=== PATIENT | female | born 2000 | race Caucasian/White ===

== ENCOUNTER 2020-04-19 17:14 | Inpatient (IN) | payer OTHER, MEDICARE, MEDICAID ==
[~2020-04-19] VITALS: Ht 162.6 cm; Wt 53.9 kg
[2020-04-19] MEDS ORDERED: SODIUM CHLORIDE FLUSH 10ML SYR IVF ONE (17:30)
[2020-04-19] MEDS ORDERED: SODIUM CHLORIDE 0.9% 1,000 ML IV ONE (17:30)
--- NOTE | 2020-04-19 17:44 | NUR ---
DYLAN RN: PT REPORTS SHE TOOK UNKNOWN AMOUNT OF DEPAKOTE AND RISPERDAL TO HURT HERSELF. PT REPORTS SHE IS SEEING AND HEARTHING THINGS. PT SEEN BY DR GARCIA. PT BROUGHT BACK TO T3. INTEGRATION LEAD ON. SINUS TACH NOTED. VS STABLE. FAMILY AT BEDSIDE. WILL CONTINUE TO MONITOR.
[2020-04-19 17:49] LABS: BASOPHILS % (AUTO) 1 % (0-1); EOSINOPHILS % (AUTO) 0 % (1-7); LYMPHOCYTES % (AUTO) 30 % (22-44); MEAN CORPUSCULAR HEMOGLOBIN 25.1 pg (27.0-34.8); MEAN CORPUSCULAR HGB CONC 31.7 g/dL (32.4-35.8); MEAN PLATELET VOLUME 7.4 fL (7.4-10.4); MONOCYTES % (AUTO) 10 % (2-9); NEUTROPHILS % (AUTO) 59 % (42-75); PLATELET COUNT 438 x10^3/uL (130-400); RED BLOOD COUNT 4.76 x10^6/uL (3.82-5.3); RED CELL DISTRIBUTION WIDTH 20.9 % (9.6-15.2)
[2020-04-19 17:50] LABS: MD NO
[2020-04-19] MEDS ORDERED: RISP2TAB35 PO (17:55)
[2020-04-19] MEDS ORDERED: DIVA500T4 PO (17:56)
[2020-04-19 18:00] LABS: ALBUMIN 3.6 g/dL (3.4-5.0); ANION GAP 7 mmol/L (5-15); CALCIUM 8.5 mg/dL (8.5-10.1); CHLORIDE 106 mmol/L (98-107)
--- NOTE | 2020-04-19 18:15 | NUR ---
PT RESTING IN ROOM. VS STABLE. PUBLICATIONS DISTRIBUTION CLERK ON. SINUS TACH NOTED. CALL LIGHT IN PLACE. WILL CONTINUE TO MONITOR.
[2020-04-19 18:17] LABS: % IRON SATURATION 4 % (20-55); ALANINE AMINOTRANSFERASE 12 U/L (12-78); ALKALINE PHOSPHATASE 76 U/L (45-117); BILIRUBIN,TOTAL 0.2 mg/dL (0.2-1.0); CREATININE 0.75 mg/dL (0.55-1.02); IRON LEVEL 18 mcg/dL (50-170); TOTAL IRON BINDING CAPACITY 437 mcg/dL (250-450); TOTAL PROTEIN 7.9 g/dL (6.4-8.2)
[2020-04-19 18:18] LABS: SALICYLATE LEVEL < 1.7 mg/dL (2.8-20.0)
--- NOTE | 2020-04-19 18:20 | NUR ---
DR GARCIA HAS UPDATED PATIENT
--- NOTE | 2020-04-19 18:22 | NUR ---
bedside report given to BAUTISTA Fletcher
--- NOTE | 2020-04-19 18:22 | NUR ---
Report from faby rn With assessment patient A+Ox4 patient noted to be responding to external stimuli. A fact she does not deny Tachycardic in the 130's and hypotensive 80/50- Provider to bedside to convey poc
[2020-04-19] MEDS ORDERED: SODIUM CHLORIDE 0.9%, 500ML IVBOLUS ONE (18:30)
--- NOTE | 2020-04-19 18:35 | NUR ---
Lab called to report valproic acid level of 264.8
[2020-04-19] MEDS ORDERED: CHARCOAL/SORBITOL 50 GM/240 ML ONE (18:46)
[2020-04-19] MEDS ORDERED: ONDANSETRON 2MG/ML, 2ML IVPush ONE (19:00)
[2020-04-19] MEDS ORDERED: CHARCOAL/AQUEOUS 25 GM/120 ML PO ONE (19:00)
--- NOTE | 2020-04-19 19:03 | NUR ---
1l ns bolus complete patient drank entire 240ml of the charcoal solution
--- NOTE | 2020-04-19 19:04 | NUR ---
report to regina henry
--- NOTE | 2020-04-19 19:38 | NUR ---
Pt resting on gurney, heart rate improving. Closely monitored.
--- NOTE | 2020-04-19 20:24 | NUR ---
PT REPORT FROM BAUTISTA GUEVARA. PT CARE TO BE ASSUMED.
--- NOTE | 2020-04-19 21:01 | NUR ---
RESTING QUIETLY ON GURNEY. NS INFUSING AT 250ML/HR VIA PUMP; SITE PATENT PT A&OX4, RESP EVEN & UNLABORED, SPEECH CLEAR, SKIN PALE PINK, W/D
--- NOTE | 2020-04-19 21:18 | NUR ---
LATE ENTRY FROM 2023: JACKY GUEVARA RN, PT WAS ABLE TO GET TO COMMODE W/OUT ASSISTANCE EARLIER, WHEN PT WAS IN TR03
--- NOTE | 2020-04-19 21:20 | NUR ---
CHART NOTES REVIEWED, AGAIN. UA WAS NOT COLLECTED EARLIER. PT CURRENTLY DOZING, RESP EVEN & UNLABORED, MONITORING CONTINUING, NS INFUSING, SIDE RAILS UP X2, CALL LIGHT W/IN REACH
--- NOTE | 2020-04-19 21:53 | NUR ---
PT REPORT TO BAUTISTA ESCOBEDO. PT CARE TRANSFERRED.
--- NOTE | 2020-04-19 22:03 | NUR ---
Report from BAUTISTA Mendoza. Pt sleeping, RR equal and unlabored. Pt to be a tele hold in ER thru night due to no sitter upstairs. Will continue to monitor.
--- NOTE | 2020-04-19 22:09 | NUR ---
Lab called Re: redraw of valporic acid and ammonia.
[2020-04-19] MEDS ORDERED: DOCUSATE 100 MG CAPSULE PO PRN (22:30)
[2020-04-19] MEDS ORDERED: LIDODERM 5% PATCH TD PRN (22:30)
[2020-04-19] MEDS: LACTATED RINGERS 1,000 ML IV SCH (22:35)
--- NOTE | 2020-04-19 22:38 | NUR ---
Repeat valporic acid 219 notified provider.
--- NOTE | 2020-04-20 01:07 | NUR ---
LR infusing per order. Pt wakes up with verbal communication, says "im tired" on monitor nsr no ectopy, no prolonged qt interval. Will continue to monitor.
--- NOTE | 2020-04-20 01:48 | NUR ---
Pt up ambulates to bathroom, steady gait. Requested urine cup pt says "i forgot". Reconnected to monitors, vss. Will continue to monitor.
[2020-04-20 02:47] LABS: ANION GAP 3 mmol/L (5-15); CALCIUM 7.4 mg/dL (8.5-10.1); CHLORIDE 114 mmol/L (98-107); CREATININE 0.64 mg/dL (0.55-1.02)
--- NOTE | 2020-04-20 03:01 | NUR ---
valporic acid 163.1, decreasing from previous draw. Provider notified.
--- NOTE | 2020-04-20 03:16 | NUR ---
Pt remains with stable vs, HR 88 sinus no ectopy no qt prolongation. Pt wakes up with verbal, very sleepy but follows directions. Has been up ambulatory to bathroom with steady gait 1to 2x. Sitter in line of site. Will continue to monitor. LR infusing.
--- NOTE | 2020-04-20 04:34 | NUR ---
Pt sleeping, RR equal and unlabored. VSS IVF infusing will continue to monitor. Sitter in line of site.
--- NOTE | 2020-04-20 04:49 | NUR ---
Wakes up with verbal and follows commands, VSS still very sleepy but responsive approp. Will continue to monitor.
--- NOTE | 2020-04-20 06:18 | NUR ---
Pt water refilled, is actively drinking water. Up several times to bathroom but forgets to give urine sample. Has had several BM. was given charcoal earlier. VSS, remained NSR through night, no prolonged qt interval. Sleeping intermittently but will wake up with verbal, a/ox4. Seizure pads remain on gurney. Waiting for tele placement. IVF LR infusing.
--- NOTE | 2020-04-20 06:33 | NUR ---
Pt up ambulates to br with steady gait for BM, again requested urine sample pt forgot again. Remains NSR, no ectopy no prolonged qt interval. seizure pads in place. Sitter in line of site. Will continue to monitor.
--- NOTE | 2020-04-20 07:07 | NUR ---
REPORT RECEIVED FROM BAUTISTA ESCOBEDO. PT SLEEPING ON BED, RESPS EVEN AND UNLABORED, ALL MONITORS IN PLACE. PT IS SINUS TACH RATE 100 WITH NO ECTOPY. SITTER MONITORING FROM [facility] FOR SAFETY, ROOM SECURE. DIET TRAY ORDERED FOR BREAKFAST. ORDER NOTED FOR URINE DRUG SCREEN AND UA, PER BAUTISTA ESCOBEDO, PT HAS VOIDED SEVERAL TIMES LAST NIGHT BUT FAILED TO COMPLY WITH RN INSTRUCTIONS TO COLLECT URINE SAMPLE. PT STILL AWAITING CARDIAC TELE BED ASSIGNMENT AND TRANSPORT AT THIS TIME.
--- NOTE | 2020-04-20 08:09 | NUR ---
pt resting on gurney, awakens to voice. pt a&ox4 once awakened, bilateral grasp equal, no drift, neuro intact. pupils 3 mm, equal, reactive to light. pt denies pain. pt denies bowel/bladder dysfunction. no abdominal tenderness on exam. pt instructed to provide clean catch ua when able. all monitors in place, pt is sinus tach rate 90s with no ectopy noted. call light in reach. room secure. sitter monitoring pt for safety. hospital bed requested from housekeeping. sequential stocking device and stockings not in ED supply room, requested from central supply.
--- NOTE | 2020-04-20 09:00 | NUR ---
pt moved to hospital bed, seizure precautions in place. pt a&o, resps even and unlabored, sinus tach rate 90s on secured entrance monitor with no ectopy noted, all monitors remain in place. pt given SI breakfast meal tray. room secure. sitter monitoring from [facility] for safety.
--- NOTE | 2020-04-20 10:01 | NUR ---
mother arrived to visit pt, private discussion had with pt before allowing mother into room, pt confirms mother is a therapeutic presence and requests to visit with mother. sitter monitoring from [facility] for safety.
--- NOTE | 2020-04-20 10:30 | NUR ---
pt's mother has left ED, pt affect unchanged after interaction.
[2020-04-20] MEDS: LACTATED RINGERS 1,000 ML IV SCH (11:06)
--- NOTE | 2020-04-20 11:20 | NUR ---
pt up to bathroom, instructed to provide clean catch urine sample. supplies provided. pt up to bathroom with steady gait, supervised by RN. urine sample collected and sent to lab.
--- NOTE | 2020-04-20 11:42 | NUR ---
BEDSIDE REPORT RECEIVED FROM BAUTISTA BUENO FOR TRANSFER OF PATIENT CARE.
[2020-04-20 11:46] LABS: BASOPHILS % (AUTO) 1 % (0-1); EOSINOPHILS % (AUTO) 1 % (1-7); LYMPHOCYTES % (AUTO) 31 % (22-44); MEAN CORPUSCULAR HEMOGLOBIN 25.8 pg (27.0-34.8); MEAN CORPUSCULAR HGB CONC 32.6 g/dL (32.4-35.8); MEAN PLATELET VOLUME 7.1 fL (7.4-10.4); MONOCYTES % (AUTO) 9 % (2-9); NEUTROPHILS % (AUTO) 59 % (42-75); PLATELET COUNT 406 x10^3/uL (130-400); RED BLOOD COUNT 4.41 x10^6/uL (3.82-5.3); RED CELL DISTRIBUTION WIDTH 20.7 % (9.6-15.2)
[2020-04-20 11:48] LABS: MD NO
[2020-04-20 11:49] LABS: MICROSCOPIC NOT IND
--- NOTE | 2020-04-20 11:53 | NUR ---
report given at bedside to DEMARCUS Shipman. card tele bed received, report given to card telephone station repairer Ja, pt awaiting transport to cardiac tele. pt a&o, resps even and unlabored. sinus tach on alarm security or surveillance monitor with no ectopy. pt has voided and stooled x 1 this am without difficulty. sitter monitoring pt from [facility] for safety, to accmpany pt to cardiac tele. stephanien at this time.
[2020-04-20 11:57] LABS: ALANINE AMINOTRANSFERASE 12 U/L (12-78); ANION GAP 5 mmol/L (5-15); CALCIUM 8.2 mg/dL (8.5-10.1); CHLORIDE 115 mmol/L (98-107)
[2020-04-20 12:00] LABS: ALKALINE PHOSPHATASE 58 U/L (45-117); BILIRUBIN,TOTAL 0.4 mg/dL (0.2-1.0); TOTAL PROTEIN 6.6 g/dL (6.4-8.2)
[2020-04-20 12:03] LABS: AMPHETAMINE SCREEN, URINE Negative (Negative); BARBITURATE SCREEN, URINE Negative (Negative); BENZODIAZEPINE SCREEN, URINE Negative (Negative); CANNABINOID SCREEN, URINE Negative (Negative); COCAINE SCREEN, URINE Negative (Negative); METHADONE SCREEN, URINE Negative (Negative); OPIATE SCREEN, URINE Negative (Negative)
--- NOTE | 2020-04-20 12:07 | NUR ---
PATIENT TRANSFERRED IN STABLE CONDITION TO CARDIAC TELEMETRY VIA HOSPITAL BED WITH HUMAN RESOURCES RECEPTIONIST AND TOOL DESIGN DRAFTER, SITTER ACCOMPANIED TO FLOOR. ALL PATIENT BELONGINGS TAKEN WITH PATIENT TO UNIT.
[2020-04-20 13:01] VITALS: BP 108/68
[2020-04-20] MEDS: ENOXAPARIN 40 MG/0.4 ML SQ SCH (14:10)
[2020-04-20] MEDS: ARIPIPRAZOLE 10 MG TABLET PO SCH (17:12)
[2020-04-20 19:11] VITALS: BP 104/64
[2020-04-20] MEDS: PROPRANOLOL 10 MG TABLET PO SCH (21:37)
[2020-04-21 01:09] VITALS: BP 112/68
[2020-04-21 05:34] LABS: BASOPHILS % (AUTO) 1 % (0-1); EOSINOPHILS % (AUTO) 1 % (1-7); LYMPHOCYTES % (AUTO) 33 % (22-44); MD NO; MEAN CORPUSCULAR HEMOGLOBIN 25.3 pg (27.0-34.8); MEAN CORPUSCULAR HGB CONC 31.7 g/dL (32.4-35.8); MEAN PLATELET VOLUME 7.1 fL (7.4-10.4); MONOCYTES % (AUTO) 13 % (2-9); NEUTROPHILS % (AUTO) 51 % (42-75); PLATELET COUNT 376 x10^3/uL (130-400); RED BLOOD COUNT 4.41 x10^6/uL (3.82-5.3); RED CELL DISTRIBUTION WIDTH 20.6 % (9.6-15.2)
[2020-04-21 05:46] LABS: ALBUMIN 2.8 g/dL (3.4-5.0); ANION GAP 2 mmol/L (5-15); CALCIUM 8.6 mg/dL (8.5-10.1); CHLORIDE 110 mmol/L (98-107)
[2020-04-21 05:48] LABS: ALANINE AMINOTRANSFERASE 12 U/L (12-78); ALKALINE PHOSPHATASE 58 U/L (45-117); BILIRUBIN,TOTAL 0.4 mg/dL (0.2-1.0); CREATININE 0.56 mg/dL (0.55-1.02); TOTAL PROTEIN 6.6 g/dL (6.4-8.2)
[2020-04-21 07:40] VITALS: BP 95/63
[2020-04-21] MEDS ORDERED: FLU VACC QS2020-21(6MOS UP)/PF 60MCG/0.5 ML SYR IM ONE (08:00)
[2020-04-21] MEDS: ARIPIPRAZOLE 10 MG TABLET PO SCH (10:10)
[2020-04-21] MEDS: PROPRANOLOL 10 MG TABLET PO SCH ×2 (10:11→20:44)
[2020-04-21] MEDS: ENOXAPARIN 40 MG/0.4 ML SQ SCH (13:11)
[2020-04-21 14:00] VITALS: BP 97/62
[2020-04-21] MEDS ORDERED: ARIPIPRAZOLE 10 MG TABLET PO ONE (14:30)
[2020-04-21 20:25] VITALS: BP 108/76
[2020-04-22 00:43] VITALS: BP 110/73
[2020-04-22 08:07] VITALS: BP 100/64
[2020-04-22] MEDS: PROPRANOLOL 10 MG TABLET PO SCH ×2 (10:32→20:38)
[2020-04-22] MEDS: ARIPIPRAZOLE 10 MG TABLET PO SCH (10:32)
[2020-04-22 14:04] VITALS: BP 96/64
[2020-04-22] MEDS: ENOXAPARIN 40 MG/0.4 ML SQ SCH (14:58)
[2020-04-22 19:29] VITALS: BP 113/69
[2020-04-23 01:00] VITALS: BP 114/74
[2020-04-23 06:43] VITALS: BP 112/77
[2020-04-23] MEDS: ARIPIPRAZOLE 10 MG TABLET PO SCH (08:26)
[2020-04-23] MEDS: PROPRANOLOL 10 MG TABLET PO SCH ×2 (08:26→19:41)
[2020-04-23 12:48] VITALS: BP 109/75
[2020-04-23] MEDS: ENOXAPARIN 40 MG/0.4 ML SQ SCH (13:16)
[2020-04-23] MEDS ORDERED: ARIP10TA33 PO (15:27)
[2020-04-23] MEDS ORDERED: PROP10TA16 PO (15:27)
[2020-04-23 19:40] VITALS: BP 115/80
[2020-04-23 19:55] VITALS: BP 112/75
== END 2020-04-23 20:15 | DRG 918 ==
LOC: ED 19:25 → EDIP 19:48 → 5SO 04-20 12:11 → 3N 04-22 13:59
PROVIDERS: ADMIT Family Medicine; ATTEND Hospitalist
DX: T50.991A Poisoning by other drugs, medicaments and biological substances, accidental (unintentional), initial encounter (principal); F17.200 Nicotine dependence, unspecified, uncomplicated; F20.9 Schizophrenia, unspecified; F31.9 Bipolar disorder, unspecified; F41.9 Anxiety disorder, unspecified; R79.89 Other specified abnormal findings of blood chemistry; Z91.5 Personal history of self-harm; Z72.89 Other problems related to lifestyle; Z23 Encounter for immunization; Y92.89 Other specified places as the place of occurrence of the external cause
CPT/HCPCS: 36415; 80048; 80053; 80164; 80299; 80307; 80320; 80329; 81003; 82140; 83540; 83550; 84443; 84703; 85025; 90686; 93005; 99291; G0378; J1650; G0480; J7030; J7040; J7120

== ENCOUNTER 2020-07-04 22:37 | Emergency (ER) | payer OTHER, MEDICARE ==
[~2020-07-04] VITALS: Ht 162.6 cm; Wt 50.0 kg
[~2020-07-04 22:37] MED LIST: ARIP10TA33 PO; DIVA500T4 PO; PROP10TA16 PO; RISP2TAB35 PO
--- NOTE | 2020-07-04 23:26 | NUR ---
pt given cereal and water per request. ok per md. pt states she cant urinate at this time. on continuous pulse ox, whispering to herself, unable to answer most questions still. will reassess
[2020-07-04] MEDS ORDERED: ZIPRASIDONE 20 MG INJ IM ONE ×2 (23:30→23:31)
--- NOTE | 2020-07-04 23:36 | NUR ---
pt quite anxious with this rn and staff, refusing blood draw or to give urine sample at this time
--- NOTE | 2020-07-05 00:05 | NUR ---
PT AGREEABLE TO GIVE URINE SAMPLE AND GIVE BLOOD AT THIS TIME. RESTING IN [facility], WAS GIVEN FOOD AND WATER EARLIER, OK PER DR. TAVARES
[2020-07-05 00:12] LABS: BASOPHILS % (AUTO) 1 % (0-1); EOSINOPHILS % (AUTO) 1 % (1-7); LYMPHOCYTES % (AUTO) 31 % (22-44); MEAN CORPUSCULAR HEMOGLOBIN 26.7 pg (27.0-34.8); MEAN CORPUSCULAR HGB CONC 32.8 g/dL (32.4-35.8); MEAN PLATELET VOLUME 7.9 fL (7.4-10.4); MONOCYTES % (AUTO) 9 % (2-9); NEUTROPHILS % (AUTO) 58 % (42-75); PLATELET COUNT 420 x10^3/uL (130-400); RED BLOOD COUNT 5.12 x10^6/uL (3.82-5.3); RED CELL DISTRIBUTION WIDTH 18.2 % (9.6-15.2)
[2020-07-05 00:23] LABS: ALANINE AMINOTRANSFERASE 19 U/L (12-78); ALBUMIN 4.1 g/dL (3.4-5.0); ANION GAP 6 mmol/L (5-15); CALCIUM 8.7 mg/dL (8.5-10.1); CHLORIDE 104 mmol/L (98-107); CREATININE 0.74 mg/dL (0.55-1.02); SALICYLATE LEVEL 2.9 mg/dL (2.8-20.0)
[2020-07-05 00:26] LABS: ALKALINE PHOSPHATASE 84 U/L (45-117); BILIRUBIN,TOTAL 0.3 mg/dL (0.2-1.0); TOTAL PROTEIN 8.6 g/dL (6.4-8.2)
[2020-07-05 00:27] LABS: MD NO
[2020-07-05 00:31] LABS: MICROSCOPIC INDICATED
[2020-07-05 00:32] LABS: AMPHETAMINE SCREEN, URINE Negative (Negative); BARBITURATE SCREEN, URINE Negative (Negative); BENZODIAZEPINE SCREEN, URINE Negative (Negative); CANNABINOID SCREEN, URINE Positive (Negative); COCAINE SCREEN, URINE Negative (Negative); METHADONE SCREEN, URINE Negative (Negative); OPIATE SCREEN, URINE Negative (Negative)
--- NOTE | 2020-07-05 00:54 | NUR ---
PT SLEEPING IN GURNEY, RESP EVEN/UNLABORED, MONITORS IN PLACE
--- NOTE | 2020-07-05 01:18 | NUR ---
PT MORE ALERT AND ORIENTED AT THIS TIME, GAVE ME NUMBER FOR HER MOTHER, NO ANSWER, MESSAGE WAS LEFT. PT RESTING IN BED, STATES NO NEEDS AT THIS TIME
[2020-07-05 02:50] VITALS: BP 104/63
--- NOTE | 2020-07-05 03:00 | NUR ---
PT IS ALERT AND ORIENTED TO TIME AND SITUATION. PT STATES SHE WANTS TO GO HOME, GIVEN DISCHARGE INSTRUCTIONS, ALL QUESTIONS ANSWERED. PT STATES SHE IS ABLE TO GET INSIDE HOUSE AND MOTHER IS HOME. PT HAS [email or web address]
== END 2020-07-05 03:29 | disposition home or self-care (01) ==
LOC: ED 07-05
DX: F14.10 Cocaine abuse, uncomplicated (principal); R41.82 Altered mental status, unspecified; F20.9 Schizophrenia, unspecified
CPT/HCPCS: 36415; 80053; 80164; 80299; 80307; 80320; 81001; 84703; 85025; 87086; 96372; 99283; J3486; 80329; G0480

== ENCOUNTER 2020-12-03 14:10 | Emergency (ER) | payer OTHER, MEDICARE ==
[~2020-12-03] VITALS: Ht 162.6 cm; Wt 46.5 kg
[2020-12-03 14:47] VITALS: BP 103/62
--- NOTE | 2020-12-03 15:03 | NUR ---
CLINICAL ENGINEER: PT IN WHEELCHAIR TO LOBBY.
--- NOTE | 2020-12-03 16:15 | NUR ---
TRIAGE TECH: NIL FOR SECOND SET OF VITALS
--- NOTE | 2020-12-03 17:13 | NUR ---
TRIAGE TECH: NIL X 3
== END 2020-12-03 17:38 | disposition left against medical advice (07) ==
LOC: ED 14:40
DX: R10.2 Pelvic and perineal pain (principal); R21 Rash and other nonspecific skin eruption
CPT/HCPCS: 36415; 84703; 99283

== ENCOUNTER 2020-12-04 03:48 | Emergency (ER) | payer OTHER, MEDICARE ==
[2020-12-04 05:43] LABS: MEAN CORPUSCULAR HEMOGLOBIN 27.1 pg (27.0-34.8); MEAN CORPUSCULAR HGB CONC 32.8 g/dL (32.4-35.8); MEAN PLATELET VOLUME 7.3 fL (7.4-10.4); PLATELET COUNT 375 x10^3/uL (130-400); RED BLOOD COUNT 4.45 x10^6/uL (3.82-5.3); RED CELL DISTRIBUTION WIDTH 16.1 % (9.6-15.2)
[2020-12-04 05:56] LABS: ALBUMIN 2.2 g/dL (3.4-5.0); ANION GAP 6 mmol/L (5-15); CALCIUM 8.9 mg/dL (8.5-10.1); CHLORIDE 105 mmol/L (98-107)
[2020-12-04 06:03] LABS: CREATININE 0.51 mg/dL (0.55-1.02)
[2020-12-04 06:16] LABS: BAND#(MANUAL) 0.38 x10^3/uL; BANDS%(MANUAL) 3 % (0-7); BASOS#(MANUAL) 0.13 x10^3/uL (0-0.1); BASOS% (MANUAL) 1 % (0-1); LYMPH#(MANUAL) 2.43 x10^3/uL (1-3.4); LYMPHS% (MANUAL) 19 % (22-44); MONOS#(MANUAL) 1.15 x10^3/uL (0.3-2.7); MONOS% (MANUAL) 9 % (2-9); SEGS% (MANUAL) 68 % (42-75)
[2020-12-04 06:17] LABS: <PLATELET ESTIMATE> ADEQUATE; <PLT MORPHOLOGY> NORMAL PLT MORPH; <RBC MORPHOLOGY> NORMAL
[2020-12-04] MEDS ORDERED: CEFTRIAXONE 1,000 MG ONE (06:17)
[2020-12-04] MEDS ORDERED: LIDOCAINE-MPF 1%, 5ML ONE (06:17)
[2020-12-04 06:20] LABS: CLUE CELLS NONE SEEN (NONE SEEN); WET PREP WBCS MANY (FEW)
[2020-12-04] MEDS ORDERED: CEFTRIAXONE 1,000 MG IM ONE (06:30)
--- NOTE | 2020-12-04 06:56 | NUR ---
Report given to BAUTISTA Beltre no further questions at this time.
--- NOTE | 2020-12-04 07:06 | NUR ---
ASSUMING CARE OF PT AT AFTER BEDSIDE REPORT. PT RESTING IN BED WITH MOTHER AT BEDSIDE. DR. MOSES TO BEDSIDE. NADN. KING.
[2020-12-04 07:10] VITALS: BP 110/65
--- NOTE | 2020-12-04 07:32 | NUR ---
PTS MOTHER CAME INTO ANOTHER PTS ROOM WHEN THIS RN WAS ASSISSTING ANOTHER PT 2X DIFFERENT TIMES IN 10 MINUTE PERIOD STATING "WE NEED TO LEAVE NOW, THE DR. MOSES SAID WE COULD LEAVE" THIS RN EDUCATED PT'S MOTHER THAT D/C PAPER WORK WAS NOT READY NOR WAS PRESCRIPTION. THIS RN ALSO EDUCATED PT'S MOTHER THAT SHE CANNOT WALK INTO OTHER PTS ROOMS AND SHE NEEDED TO WAIT IN DAUGHTERS ROOM FOR PAPERWORK AND PRESCRIPTIONS. THIS RN ALSO EDUCATED PTS MOTHER THAT THEY ARE FREE TO LEAVE AT ANYTIME BUT IT IS HIGHLY RECOMMENDED THAT THEY WAIT FOR PAPERWORK AND PRESCRIPTIONS.
--- NOTE | 2020-12-04 07:37 | NUR ---
Patient AND Caregiver given discharge instructions and they have confirmed that they understand the instructions. Patient ambulatory with steady gait. NAD, all questions answered appropriately, denies additional needs at this time. No personal belongings left in room after discharge.
== END 2020-12-04 07:44 | disposition home or self-care (01) ==
LOC: ED 06:08
DX: N76.0 Acute vaginitis (principal); A56.09 Other chlamydial infection of lower genitourinary tract; A60.04 Herpesviral vulvovaginitis
CPT/HCPCS: 36415; 80048; 82040; 84703; 85025; 87210; 87491; 87591; 87808; 96372; 99283; J0696